=== PATIENT | female | born 1965 | race Caucasian/White ===

== ENCOUNTER 2018-05-15 11:24 | Emergency (ER) | payer OTHER ==
[~2018-05-15] VITALS: Wt 105.3 kg
[2018-05-15 11:27] VITALS: BP 134/75; PULSE 81; RESP 17
[2018-05-15] MEDS ORDERED: LIDOCAINE 1% (MPF) 5 ML VIAL INJ ONE (13:00)
--- NOTE | 2018-05-15 13:46 | ERD ---
ER Documentation Chief Complaint Chief Complaint RIGHT UPPER ARM SWELLING/REDNESS X5 DAYS, PT ON ABX HPI 52-year-old female presenting with swelling to the right upper arm. Patient is on antibiotics for the last 2 days however has had continued swelling. No lymphatic streaking and no fevers. Patient states she had a blackhead in this location she tried squeezing it however got red and more irritated. Denies medical problems. NKDA. Surgical history denies. Social history denies ROS All systems reviewed and are negative except as per history of present illness. Allergies Allergies: Coded Allergies: No Known Allergy (Unverified , 05/15/18) PMhx/Soc Hx Cardiac Disorders: Yes (htn) FmHx Family History: No diabetes, No coronary disease, No other Physical Exam Vitals Vital Signs Date Temp Pulse Resp B/P (MAP) Pulse Ox O2 O2 Flow FiO2 Time Delivery Rate 05/15/18 99.3 81 17 134/75 99 11:27 (94) Physical Exam GENERAL: The patient is well-appearing, well-nourished, in no acute distress CHEST: Clear to auscultation bilaterally. There are no rales, wheezes or rhonchi. HEART: Regular rate and rhythm. No murmurs, clicks, rubs or gallops. SKIN: Erythema to right upper arm. No lymph streaking. Mild fluctuance Results 24 hrs Current Medications Medications Dose Sig/Darwin Start Time Status Last (Trade) Ordered Route PRN Stop Time Admin Dose Reason Admin Lidocaine 5 ml ONCE ONCE 05/15/18 DC (Xylocaine INJ 13:00 1% (Mpf)) 05/15/18 13:01 Procedures/MDM Abscess Incision and Drainage with irrigation by me: Location: Right upper arm Anesthesia: Local 1% Lidocaine Technique: Irrigated. Disrupted loculations w/ instrumentation Packing: None Complications: Neurovascularly intact post procedure 48 hour wound check. Scar minimization instructions given. MDM: 52-year-old female presenting with abscess to right upper arm. I have low suspicion for deep tracking infection. I have low suspicion for lymphatic infection. I have low suspicion for tendon or ligament injury. Patient is discharged with recommendations to continue antibiotics and applying warm compresses to affected site. I feel that wound is more cellulitic than flexion with purulence and patient is recommended to return in 2 days as she need may need a repeat I&D at that time. Patient is discharged stricter precautions. All questions answered at discharge Departure Diagnosis: Primary Impression: Epidermal inclusion cyst Condition: Stable Patient Instructions: Abscess, Incision And Drainage Referrals: [facility] YOU HAVE RECEIVED A MEDICAL SCREENING EXAM AND THE RESULTS INDICATE THAT YOU DO NOT HAVE A CONDITION THAT REQUIRES URGENT TREATMENT IN THE EMERGENCY DEPARTMENT. FURTHER EVALUATION AND TREATMENT OF YOUR CONDITION CAN WAIT UNTIL YOU ARE SEEN IN YOUR DOCTORS OFFICE WITHIN THE NEXT 1-2 DAYS. IT IS YOUR RESPONSIBILITY TO MAKE AN APPOINTMENT FOR FOLOW-UP CARE. IF YOU HAVE A PRIMARY DOCTOR --you should call your primary doctor and schedule an appointment IF YOU DO NOT HAVE A PRIMARY DOCTOR YOU CAN CALL OUR PHYSICIAN REFERRAL HOTLINE AT IF YOU CAN NOT AFFORD TO SEE A PHYSICIAN YOU CAN CHOSE FROM THE FOLLOWING [facility] [address] [facility]. [facility] [address] [facility]. [facility] [address] [facility] [address] [facility]. [facility] [address] [facility]. [facility] [address] Additional Instructions: FOLLOW UP WITH YOUR PRIMARY CARE PHYSICIAN TOMORROW.Return to this facility if you are not improving as expected. VERONIKA NATH PA-C May 15, 2018 13:46
== END 2018-05-15 14:15 | disposition home or self-care (01) ==
LOC: FTE 11:24
DX: L72.0 Epidermal cyst (principal); L02.413 Cutaneous abscess of right upper limb; I10 Essential (primary) hypertension
CPT/HCPCS: 10060; Z7502; Z7610

== ENCOUNTER 2018-05-18 10:14 | Emergency (ER) | payer OTHER ==
[~2018-05-18] VITALS: Ht 172.7 cm; Wt 106.4 kg
[2018-05-18 10:32] VITALS: BP 135/75; PULSE 72; RESP 20; Ht 172.7 cm; Wt 106.4 kg
--- NOTE | 2018-05-18 14:09 | ERD ---
ER Documentation Chief Complaint Chief Complaint Patient here for a wound check HPI 52-year-old female presenting for wound check to the right arm. Patient had an I&D performed 2 days ago and has been applying warm compresses to the site. No fevers. She is taking antibiotics as prescribed previously prescribed. She denies any numbness or tingling. Denies any fevers. Denies other medical problems. NKDA. Surgical history denies. Social history denies ROS All systems reviewed and are negative except as per history of present illness. Allergies Allergies: Coded Allergies: No Known Allergy (Unverified , 05/15/18) PMhx/Soc Hx Cardiac Disorders: Yes (htn) FmHx Family History: No diabetes, No coronary disease, No other Physical Exam Vitals Vital Signs Date Temp Pulse Resp B/P (MAP) Pulse Ox O2 O2 Flow FiO2 Time Delivery Rate 05/18/18 98.8 72 20 135/75 99 10:32 (95) Physical Exam GENERAL: The patient is well-appearing, well-nourished, in no acute distress CHEST: Clear to auscultation bilaterally. There are no rales, wheezes or rhonchi. HEART: Regular rate and rhythm. No murmurs, clicks, rubs or gallops. EXTREMITIES: Equal pulses bilaterally. There is no peripheral clubbing, cyanosis or edema. No focal swelling or erythema. Full range of motion NEUROLOGIC: Alert and oriented. Cranial nerves II through XII intact. Motor strength in all 4 extremities with 5 out of 5 strength. Sensation grossly intact. SKIN: Improving erythema noted to the right arm with no fluctuance and no lymphatic streaking. Previous I&D site noted. Procedures/MDM MDM: 52-year-old female presenting for wound check. Patient's wound appears to be healing appropriately. I have low suspicion for worsening infection. I have low suspicion for lymphatic infection. Patient is recommended to clean with soap and water and keep open to dry. Patient is told symptoms change or worsen to return immediately to the ER. All questions answered at discharge Departure Diagnosis: Primary Impression: Encounter for wound re-check Condition: Stable Patient Instructions: Wound Care Referrals: [facility] YOU HAVE RECEIVED A MEDICAL SCREENING EXAM AND THE RESULTS INDICATE THAT YOU DO NOT HAVE A CONDITION THAT REQUIRES URGENT TREATMENT IN THE EMERGENCY DEPARTMENT. FURTHER EVALUATION AND TREATMENT OF YOUR CONDITION CAN WAIT UNTIL YOU ARE SEEN IN YOUR DOCTORS OFFICE WITHIN THE NEXT 1-2 DAYS. IT IS YOUR RESPONSIBILITY TO MAKE AN APPOINTMENT FOR FOLOW-UP CARE. IF YOU HAVE A PRIMARY DOCTOR --you should call your primary doctor and schedule an appointment IF YOU DO NOT HAVE A PRIMARY DOCTOR YOU CAN CALL OUR PHYSICIAN REFERRAL HOTLINE AT IF YOU CAN NOT AFFORD TO SEE A PHYSICIAN YOU CAN CHOSE FROM THE FOLLOWING [facility] [address] [facility] [address] [facility] [facility] [address] [facility] [address] [facility]. [facility] [address] [facility]. [facility]. [address] Additional Instructions: FOLLOW UP WITH YOUR PRIMARY CARE PHYSICIAN TOMORROW.Return to this facility if you are not improving as expected. VERONIKA NATH PA-C May 18, 2018 14:09
== END 2018-05-18 13:01 | disposition home or self-care (01) ==
LOC: FTE 10:14
DX: Z48.01 Encounter for change or removal of surgical wound dressing (principal); I10 Essential (primary) hypertension
CPT/HCPCS: 99281